=== PATIENT | male | born 1980 | race Caucasian/White ===

== ENCOUNTER 2016-08-17 19:44 | Emergency (ER) | payer SELFPAY ==
[~2016-08-17] VITALS: Ht 180.3 cm; Wt 93.2 kg
[2016-08-17 19:49] VITALS: BP 140/75; TEMP 98.4
[2016-08-17 20:49] VITALS: PULSE 101
== END 2016-08-17 20:49 | disposition home or self-care (01) ==
LOC: COL.ER 19:44
DX: M77.9 Enthesopathy, unspecified (principal); F17.210 Nicotine dependence, cigarettes, uncomplicated

== ENCOUNTER 2016-12-13 09:38 | Emergency (ER) | payer SELFPAY ==
[~2016-12-13] VITALS: Ht 177.8 cm; Wt 93.2 kg
[2016-12-13 09:47] VITALS: BP 129/85; TEMP 98.2
[2016-12-13] MEDS ORDERED: NORCO 325 MG-51 TAB PO (10:50)
[2016-12-13] MEDS ORDERED: AMOXICILLIN 8751 TAB PO (10:50)
[2016-12-13 11:02] VITALS: PULSE 96
== END 2016-12-13 11:02 | disposition home or self-care (01) ==
LOC: COL.ER 09:38
DX: K04.7 Periapical abscess without sinus (principal); F17.210 Nicotine dependence, cigarettes, uncomplicated

== ENCOUNTER 2017-05-06 18:51 | Emergency (ER) | payer SELFPAY ==
[~2017-05-06] VITALS: Ht 180.3 cm; Wt 93.2 kg
[~2017-05-06 18:51] MED LIST: AMOXICILLIN 8751 TAB PO; CEPHALEXIN500 M1 PO; NORCO 325 MG-51 TAB PO
[2017-05-06 19:07] VITALS: BP 134/88; TEMP 98
[2017-05-06 19:57] LABS: COLLECTION METHOD CLEAN CATCH
[2017-05-06 20:24] LABS: PH 6 (5-8); URINE APPEARANCE Clear; URINE BILIRUBIN Negative (NEGATIVE); URINE BLOOD Negative (NEGATIVE); URINE COLOR Straw; URINE GLUCOSE Negative (NEGATIVE); URINE KETONE Negative (NEGATIVE); URINE LEUKOCYTE ESTERASE Negative (NEGATIVE); URINE NITRATE Negative (NEGATIVE); URINE PROTEIN(semi-quant) Negative (NEGATIVE); URINE UROBILINOGEN Negative (NEGATIVE)
[2017-05-06 20:28] LABS: SQUAMOUS EPITHELIAL 0-2 /hpf; URINE RBC 0-2 /hpf
[2017-05-06] MEDS ORDERED: FLEXERIL 1010 MG/TAB PO (20:33)
[2017-05-06 21:20] VITALS: PULSE 66
== END 2017-05-06 21:21 | disposition home or self-care (01) ==
LOC: COL.ER 18:51
PROVIDERS: Nurse Practitioner
DX: S39.012A Strain of muscle, fascia and tendon of lower back, initial encounter (principal); F17.210 Nicotine dependence, cigarettes, uncomplicated; Y99.0 Civilian activity done for income or pay; X50.0XXA Overexertion from strenuous movement or load, initial encounter
CPT/HCPCS: J1885; J2360

== ENCOUNTER 2017-07-21 07:40 | Emergency (ER) | payer SELFPAY ==
[~2017-07-21] VITALS: Ht 180.3 cm; Wt 81.8 kg
[~2017-07-21 07:40] MED LIST changes: +FLEXERIL 1010 MG/TAB PO
[2017-07-21 07:48] VITALS: BP 133/77; TEMP 98.2
[2017-07-21 09:00] VITALS: PULSE 68
== END 2017-07-21 09:01 | disposition home or self-care (01) ==
LOC: COL.ER 07:40
DX: T16.2XXA Foreign body in left ear, initial encounter (principal)

== ENCOUNTER 2017-10-15 05:56 | Emergency (ER) | payer SELFPAY ==
[~2017-10-15] VITALS: Ht 180.3 cm; Wt 75.0 kg
[2017-10-15 06:05] VITALS: BP 106/76; TEMP 98.1
[2017-10-15 06:45] LABS: BASO # 0.1 (0.0-0.2); EOS # 0.1 (0.0-0.7); EOS % 2.5 % (0-4.0); GRAN # 2.7 (1.4-6.5); GRAN % 51.1 % (42.2-75.2); HEMOGLOBIN 12.2 g/dl (13.5-18.0); LYMPH # 1.8 (1.2-3.4); LYMPH % 34.4 % (20.0-51.0); MEAN CELL VOLUME 90 fl (80.0-100.0); MEAN CORPUSCULAR HEMOGLOBIN 31 pg (27.0-31.0); MEAN CORPUSCULAR HGB CONC 34 g/dl (33.0-37.0); MEAN PLATELET VOLUME 8.4 fl (7.4-10.4); MONO # 0.6 (0.1-0.6); MONO % 10.8 % (1.7-9.3); PLATELET COUNT 204 K/mm3 (130-400); REDCELL DISTRIBUTION WIDTH-CV 12.8 % (11.5-14.5)
[2017-10-15 06:48] LABS: HEMATOCRIT 35.9 % (42.0-52.0)
[2017-10-15] MEDS ORDERED: DOXYCYCLINE HY100 MG PO (07:02)
[2017-10-15 07:20] VITALS: PULSE 68
== END 2017-10-15 07:20 | disposition home or self-care (01) ==
LOC: COL.ER 05:56
PROVIDERS: Emergency Medicine
DX: S20.362A Insect bite (nonvenomous) of left front wall of thorax, initial encounter (principal); W57.XXXA Bitten or stung by nonvenomous insect and other nonvenomous arthropods, initial encounter

== ENCOUNTER 2018-03-17 22:49 | Emergency (ER) | payer SELFPAY ==
[~2018-03-17] VITALS: Ht 177.8 cm; Wt 75.0 kg
[~2018-03-17 22:49] MED LIST changes: +DOXYCYCLINE HY100 MG PO
[2018-03-18 00:47] LABS: BASO % 0.6 % (0.0-2.0); EOS # 0.2 (0.0-0.7); EOS % 2.8 % (0-4.0); GRAN # 3.4 (1.4-6.5); GRAN % 47.9 % (42.2-75.2); HEMATOCRIT 42.6 % (42.0-52.0); HEMOGLOBIN 14.6 g/dl (13.5-18.0); LYMPH # 2.9 (1.2-3.4); LYMPH % 40.6 % (20.0-51.0); MEAN CELL VOLUME 93 fl (80.0-100.0); MEAN CORPUSCULAR HEMOGLOBIN 32 pg (27.0-31.0); MEAN CORPUSCULAR HGB CONC 34 g/dl (33.0-37.0); MEAN PLATELET VOLUME 9.3 fl (7.4-10.4); MONO # 0.5 (0.1-0.6); MONO % 7.7 % (1.7-9.3); PLATELET COUNT 206 K/mm3 (130-400)
[2018-03-18 00:57] LABS: ALANINE AMINOTRANSFERASE 18 U/L (21-72); ALBUMIN 4.4 gm/dL (3.5-5.0); ALCOHOL(ethanol),MEDICAL 137 mg/dL; ALKALINE PHOSPHATASE 62 U/L (50-136); ANION GAP 13 mmol/L (7-16); AST,SGOT 26 U/L (15-37); BILIRUBIN,TOTAL 0.4 mg/dL (0.0-1.0); BLOOD UREA NITROGEN 13 mg/dL (9-20); CALCIUM 9.4 mg/dL (8.4-10.2); CARBON DIOXIDE 22 mmol/L (22-30); CHLORIDE 106 mmol/L (98-107); CREATININE, serum 0.91 mg/dL (0.66-1.25); GLUCOSE 97 mg/dL (74-106); LIPASE 70 U/L (23-300); POTASSIUM 3.8 mmol/L (3.4-5.0); SODIUM 141 mmol/L (137-145); TOTAL PROTEIN 7.5 gm/dL (6.4-8.2)
[2018-03-18 01:00] LABS: ACETAMINOPHEN < 10 ug/mL (10-30); SALICYLATE < 1.0 mg/dL
[2018-03-18 02:44] VITALS: TEMP 97.6
[2018-03-18 05:25] LABS: COLLECTION METHOD CLEAN CATCH
[2018-03-18 05:34] LABS: MUCOUS Present /lpf; PH 5 (5-8); SQUAMOUS EPITHELIAL 0-2 /hpf; URINE APPEARANCE Clear; URINE BACTERIA None Seen /hpf; URINE BILIRUBIN Negative (NEGATIVE); URINE BLOOD 1+ (NEGATIVE); URINE COLOR Yellow; URINE GLUCOSE Negative (NEGATIVE); URINE KETONE Negative (NEGATIVE); URINE LEUKOCYTE ESTERASE Negative (NEGATIVE); URINE NITRATE Negative (NEGATIVE); URINE PROTEIN(semi-quant) Negative (NEGATIVE); URINE RBC 0-2 /hpf; URINE UROBILINOGEN Negative (NEGATIVE)
[2018-03-18 06:30] LABS: TRICYCLIC ANTIDEPRESS URINE NEGATIVE
[2018-03-18] MEDS ORDERED: CEPHALEXIN500 M1 PO (09:28)
[2018-03-18 09:52] VITALS: BP 126/69; PULSE 69
== END 2018-03-18 10:03 | disposition home or self-care (01) ==
LOC: COL.ER 22:49
PROVIDERS: Emergency Medicine
DX: S61.512A Laceration without foreign body of left wrist, initial encounter (principal); F32.9 Major depressive disorder, single episode, unspecified; F10.129 Alcohol abuse with intoxication, unspecified; Z23 Encounter for immunization; Y90.6 Blood alcohol level of 120-199 mg/100 ml; X78.9XXA Intentional self-harm by unspecified sharp object, initial encounter
CPT/HCPCS: A4216; J1200; J2060; J3486; Q4021

== ENCOUNTER 2019-12-20 08:06 | Emergency (ER) | payer SELFPAY ==
[~2019-12-20] VITALS: Ht 180.3 cm; Wt 84.1 kg
[2019-12-20 08:14] VITALS: TEMP 99.3
[2019-12-20] MEDS ORDERED: CRUTCHES MC (08:45)
[2019-12-20 10:30] VITALS: BP 129/84; PULSE 75
== END 2019-12-20 10:36 | disposition home or self-care (01) ==
LOC: COL.ER 08:06
DX: S82.61XA Displaced fracture of lateral malleolus of right fibula, initial encounter for closed fracture (principal); F17.210 Nicotine dependence, cigarettes, uncomplicated; Z88.8 Allergy status to other drugs, medicaments and biological substances; W18.30XA Fall on same level, unspecified, initial encounter; Y92.410 Unspecified street and highway as the place of occurrence of the external cause
CPT/HCPCS: Q4045

== ENCOUNTER 2019-12-29 11:15 | Emergency (ER) | payer BC ==
[~2019-12-29] VITALS: Ht 180.3 cm; Wt 84.1 kg
[~2019-12-29 11:15] MED LIST changes: +CRUTCHES MC
[2019-12-29] MEDS ORDERED: NORCO 325 MG-7.1 TAB PO (11:36)
[2019-12-29] MEDS ORDERED: ALEVE 220MG220 MG PO (11:37)
[2019-12-29] MEDS ORDERED: PERCOCET 325 MG1 TA3 PO ×3 (13:47→14:02)
[2019-12-29] MEDS ORDERED: DOXYCYCLINE HY100 MG PO ×3 (13:47→14:02)
[2019-12-29] MEDS ORDERED: CEPHALEXIN500 M1 PO ×3 (13:47→14:02)
[2019-12-29 14:06] VITALS: BP 119/94; PULSE 76
== END 2019-12-29 14:10 | disposition home or self-care (01) ==
LOC: COL.ER 11:15
DX: G89.18 Other acute postprocedural pain (principal); T81.40XA Infection following a procedure, unspecified, initial encounter; Z88.8 Allergy status to other drugs, medicaments and biological substances
CPT/HCPCS: J0690; J1170; J1885